=== PATIENT | female | born 1985 | race African-American/Black ===

== ENCOUNTER 2024-01-28 12:44 | Emergency (ER) | payer OTHER, SELFPAY ==
--- NOTE | ~2024-01-28 | XR_ITS ---
EXAMINATION: XR chest 2V DATE: 01/28/2024 13:37 INDICATION: Cough. Chest tightness radiating to the right shoulder. TECHNIQUE: PA and lateral views of the chest were obtained. COMPARISON: None FINDINGS: Mild linear discoid atelectasis at the lingula. No other airspace opacities, pulmonary edema, pleural effusion or pneumothorax. The cardiomediastinal silhouette is normal. The thoracic spondylosis with mild anterior wedging of a couple midthoracic vertebral bodies, likely T6 and T7. Likely cholecystect martin clips in the upper abdomen. IMPRESSION: 1. Mild linear discoid atelectasis/scarring at the lingula. No other acute cardiopulmonary disease. Reviewed, dictated and finalized at location B. IMPRESSION: 1. Mild linear discoid atelectasis/scarring at the lingula. No other acute card iopulmonary disease.
[2024-01-28 12:43] VITALS: BP 143/94; PULSE 81; RESP 18; TEMP 36.4; O2SAT 99
[2024-01-28 12:52] VITALS: O2SAT 98
--- NOTE | 2024-01-28 12:55 | ECG_ITS ---
Measurements Intervals [place] Rate: 77 P: 53 AL: 194 QRS: 31 QRSD: 75 T: 16 QT: 376 QTc: 427 Interpretive Statements SINUS RHYTHM POSSIBLE LEFT ATRIAL ENLARGEMENT DELAYED PRECORDIAL R/S TRANSITION LOW QRS VOLTAGE IN PRECORDIAL LEADS BORDERLINE T WAVE ABNORMALITY- INFERIOR LEADS BASELINE ARTIFACT- I, II, III, AVR, AVL, V3, V6 BORDERLINE ECG NO PREVIOUS ECG AVAILABLE FOR COMPARISON Electronically Signed On 01-28-2024 13:13:58 CDT by Jayce Smith D.O.
[2024-01-28 13:48] VITALS: BP 146/87; PULSE 62; RESP 20; O2SAT 100
[2024-01-28 14:00] LABS: Basophils Percent Auto 0.6 % (0.2-1.2); Eosinophils Absolute Auto 0.1 K/mm3 (0-0.3); Hemoglobin 11.7 g/dL (12.0-15.0); Immature Granulocyte Absolute 0.02 K/mm3 (0.00-0.031); Immature Granulocyte Percent A 0.3 % (0-0.5); Lymphocytes Absolute Auto 1.47 K/mm3 (0.9-3.2); Lymphocytes Percent Auto 21.2 % (18.3-44.2); Mean Corpuscular HGB Conc 31.6 g/dl (32-36); Mean Corpuscular Hemoglobin 29.3 pg (26-34); Mean Corpuscular Volume 92.5 fl (80-100); Mean Platelet Volume 11.6 fl (7.4-10.4); Monocytes Absolute Auto 0.7 K/mm3 (0.1-0.6); Monocytes Percent Auto 10.2 % (2.6-8.5); Neutrophils Absolute Auto 4.6 K/mm3 (1.3-6.7); Neutrophils Percent Auto 65.7 % (45.5-73.1); Platelet Count Result 329 k/mm3 (150-375); Red Cell Distribution Width 14.6 % (11.5-14.5)
[2024-01-28 14:11] LABS: Alanine Aminotransferase 16 U/L (6-35); Alkaline Phosphatase 46 U/L (38-126); Anion Gap 3 mmol/L (8-16); Aspartate Amino Transferase 24 U/L (14-36); Bilirubin,Total 0.5 mg/dL (0.2-1.3); Blood Urea Nitrogen 11 mg/dL (7-17); Calcium 8.7 mg/dL (8.4-10.2); Carbon Dioxide 23 mmol/L (22-30); Chloride 110 mmol/L (98-107); Estimated CRCL calculation 144 ml/min; Estimated Glomerular Filt Rate > 60; Glucose 94 mg/dL (65-110); Lipase 53 U/L (23-300); Sodium 136 mmol/L (137-145)
[2024-01-28] MEDS: KETOROLAC 30 MG/ML VIAL (*BKC) IV PUSH (14:19)
[2024-01-28 14:21] LABS: Troponin I 0.028 ng/mL (0.000-0.034)
[2024-01-28 15:34] VITALS: BP 139/97; PULSE 75; RESP 19; O2SAT 100
--- NOTE | 2024-01-28 15:48 | ED.CHESTPAIN ---
HPI - Chest Pain General Chief Complaint: Chest Pain Stated Complaint: CHEST TIGHT/ HTN Time Seen by Provider: 01/28/24 13:28 History of Present Illness HPI narrative: Patient is a 38-year-old female who presents ER with chest pain and tightness. Began early this morning. Came in by EMS received nitro and nebulizer treatment for wheezing. Patient reports cough for several days. No fevers or chills or sweats. No history of heart disease. No hemoptysis. No recent heart. Denies any alleviating factors. Patient is also reporting some cramping neck pain bilaterally. Worse with turning her head. No trauma. Related Data Allergies Allergy/AdvReac Type Severity Reaction Status Date / Time No Known Allergies Allergy Verified 01/28/24 12:54 Review of Systems Review of Systems: All systems reviewed & are unremarkable except as noted in HPI and below Constitutional: Constitutional: Denies chills, Denies fatigue and Denies fever(s) ENT: Denies nasal congestion and Denies sore throat Cardiovascular: Cardiovascular: Reports chest pain, Denies rapid heart rate and Denies radiating jaw, neck or arm pain Respiratory: Respiratory: Reports cough, Denies dyspnea and Reports wheezing Gastrointestinal: Gastrointestinal: Reports no additional gastrointestinal complaints PMFSH Past Medical History Medical History (Updated 01/28/24 @ 15:54 by Hayden Shelton MD) Hypertension Surgical History Surgical History (Updated 01/28/24 @ 15:50 by Hayden Shelton MD) No pertinent past surgical history Exam Narrative: GENERAL: Well-appearing, Morbidly obese, and in no acute distress. HEAD: Normocephalic, atraumatic. ENT: Mucous membranes moist. NECK: Supple. Mild tenderness the paraspinal muscles of the cervical spine bilaterally. No limitation range of motion. CHEST: Clear to auscultation. No respiratory distress. HEART: Regular rate and rhythm. Normal peripheral pulses. ABDOMEN: Soft, nontender, nondistended. EXTREMITIES: Normal range of motion. No edema. SKIN: Warm, dry, no rash. NEURO: Alert and oriented x3. PSYCH: Normal mood and affect. Course Course Emergency Course: Patient resting comfortably. Feels improved with Toradol. EKG without ST elevation or depression. Troponin within normal limits. Patient is without tachycardia, blood pressure 139/97 mm Hg, no hypoxia. Patient feels comfortable discharge home with anti-inflammatories and follow-up with PCP outpatient. May be experiencing pleurisy. Vital Signs Vital signs: Vital Signs Temperature 97.6 F 01/28/24 12:43 Pulse Rate 81 01/28/24 12:43 Respiratory Rate 18 01/28/24 12:43 Blood Pressure 143/94 H 01/28/24 12:43 Pulse Oximetry 99 01/28/24 12:43 Oxygen Delivery Room Air 01/28/24 12:43 Temperature 97.6 F 01/28/24 12:43 Pulse Rate 75 01/28/24 15:34 Respiratory Rate 19 01/28/24 15:34 Blood Pressure 139/97 H 01/28/24 15:34 Pulse Oximetry 100 01/28/24 15:34 Oxygen Delivery Room Air 01/28/24 12:52 MDM - Chest Pain Lab Data 01/28/24 13:47 01/28/24 13:47 Labs: Lab Results 01/28/24 Range/Units 13:47 WBC 7.0 (4.5-10.0) K/mm3 RBC 4.00 L (4.2-5.4) M/mm3 Hgb 11.7 L (12.0-15.0) g/dL Hct 37.0 (37.0-47.0) % MCV 92.5 (80-100) fl MCH 29.3 (26-34) pg MCHC 31.6 L (32-36) g/dl RDW 14.6 H (11.5-14.5) % Plt Count 329 (150-375) k/mm3 MPV 11.6 H (7.4-10.4) fl Immature Gran % (Auto) 0.3 (0-0.5) % Neut % (Auto) 65.7 (45.5-73.1) % Lymph % (Auto) 21.2 (18.3-44.2) % [place] % (Auto) 10.2 H (2.6-8.5) % Eos % (Auto) 2.0 (0-4.4) % Baso % (Auto) 0.6 (0.2-1.2) % Lymph # (Auto) 1.47 (0.9-3.2) K/mm3 [place] # (Auto) 0.7 H (0.1-0.6) K/mm3 Eos # (Auto) 0.1 (0-0.3) K/mm3 Baso # (Auto) 0.0 (0.0-0.1) K/mm3 Abs Immat Gran (auto) 0.02 (0.00-0.031) K/mm3 Absolute Neuts (auto) 4.6 (1.3-6.7) K/mm3 Absolute Nucleated RBC 0.0 (0.0-0.
[2024-01-28 16:11] VITALS: BP 148/93; PULSE 61; RESP 15; O2SAT 100
== END 2024-01-28 16:13 | disposition home or self-care (01) ==
PROVIDERS: Emergency Provider Emergency Medicine; PCP Internal Medicine Infectious Disease
DX: R07.89 Other chest pain (principal); I10 Essential (primary) hypertension; R94.31 Abnormal electrocardiogram [ECG] [EKG]
CPT/HCPCS: 36415; 71046; 80053; 83690; 84484; 85025; 85610; 85730; 93005; 96374; 99284; J1885